=== PATIENT | male | born 1950 | race Caucasian/White ===

== ENCOUNTER → 2016-05-27 | Outpatient (CLI) | payer OTHER ==
[~2016-05-27] MED LIST: ATOR-54 PO; BUSP15TA70 PO; CLON1TAB3 PO; DORZ1SOL6 OP; DULO60CA44 PO; GABA-113 PO; HYDR50CA2 PO; LISI-786 PO; METF1000 PO; NXM/40 PO; SILO8CAP PO; SITA100T3 PO
== END | disposition home or self-care (01) ==
LOC: C.PATHSPEC 10:49
PROVIDERS: ATTEND Urology
DX: C67.9 Malignant neoplasm of bladder, unspecified (principal)

== ENCOUNTER → 2017-10-31 | Outpatient (CLI) | payer OTHER ==
[~2017-10-31] MED LIST changes: +CLB100 PO; +CLON1TAB10 PO; -CLON1TAB3 PO; +INSU100I23 SC; +OXCA150T2 PO; +PREG1CAP28 PO; +TRAZODONE 150 MG PO
--- NOTE | 2017-10-31 12:39 | DIAGNOSTIC IMAGING REPORT ---
LEG LENGTH STUDY CLINICAL HISTORY: Leg length discrepancy. Right sacroiliac pain. FINDINGS: A frontal standing radiograph of the lower extremities and pelvis is obtained for leg length assessment. The skeletal structures appear well mineralized for age. There is no evidence of fracture in the lower extremities or pelvis. Extensive lumbosacral spinal fusion hardware is in place. The right lower extremity measures 87.9 cm in length and the left lower extremity measures 88.0 cm in length as measured from the femoral head to the tibial plafond. The overlying soft tissues are normal in appearance. IMPRESSION: There is no significant leg length discrepancy. See above. Electronically signed by: Jc Pratt M.D. 10/31/2017 12:38 PM Dictated Date/Time: 10/31/2017 12:36 PM
== END | disposition home or self-care (01) ==
LOC: C.RADBC 11:00
PROVIDERS: ATTEND Anesthesiology
DX: M21.70 Unequal limb length (acquired), unspecified site (principal); M53.3 Sacrococcygeal disorders, not elsewhere classified

== ENCOUNTER 2019-02-14 06:32 | Inpatient (IN) ==
--- NOTE | 2019-01-30 10:53 | PAT Medication Instructions ---
Medication Instructions Date of Service January 30, 2019 Home Medications atorvastatin 20 mg tablet 10 mg PO PM celecoxib 100 mg capsule 100 mg PO BID PRN clonazepam 1 mg tablet 1 mg PO TID PRN esomeprazole magnesium 40 mg capsule,delayed release 40 mg PO QAM metformin 1,000 mg tablet 1,000 mg PO BID oxcarbazepine 150 mg tablet 2 tab PO BID silodosin 8 mg capsule 8 mg PO QAM sitagliptin 100 mg tablet 100 mg PO QAM Basaglar KwikPen U-100 Insulin 25 unit SUBCUT HS dorzolamide-timolol (PF) [Cosopt (PF)] 1 drp OPHTHALMIC (EYE) Q12H lisinopril 10 mg PO QAM quetiapine [Seroquel] 50 mg PO HS PRN tramadol 50 mg PO Q6H PRN trazodone 75 mg PO HS gabapentin 100 mg PO Q8H ASK your surgeon for instructions celecoxib 100 mg capsule 100 mg PO BID PRN DO NOT take the morning of surgery metformin 1,000 mg tablet 1,000 mg PO BID sitagliptin 100 mg tablet 100 mg PO QAM lisinopril 10 mg PO QAM Take morning of surgery With a small sip of water, OTHERWISE NOTHING TO EAT OR DRINK AFTER MIDNIGHT: clonazepam 1 mg tablet 1 mg PO TID PRN (if needed) esomeprazole magnesium 40 mg capsule,delayed release 40 mg PO QAM oxcarbazepine 150 mg tablet 2 tab PO BID silodosin 8 mg capsule 8 mg PO QAM dorzolamide-timolol (PF) [Cosopt (PF)] 1 drp OPHTHALMIC (EYE) Q12H tramadol 50 mg PO Q6H PRN (okay to take up to 4 hours prior to surgery if needed) gabapentin 100 mg PO Q8H Take evening before surgery atorvastatin 20 mg tablet 10 mg PO PM clonazepam 1 mg tablet 1 mg PO TID PRN (if needed) metformin 1,000 mg tablet 1,000 mg PO BID oxcarbazepine 150 mg tablet 2 tab PO BID Basaglar KwikPen U-100 Insulin 25 unit SUBCUT HS dorzolamide-timolol (PF) [Cosopt (PF)] 1 drp OPHTHALMIC (EYE) Q12H quetiapine [Seroquel] 50 mg PO HS PRN (if needed) tramadol 50 mg PO Q6H PRN (if needed) trazodone 75 mg PO HS gabapentin 100 mg PO Q8H Other Notes If you have any questions please call us at [phone] or [phone] or [phone] or [phone]
--- NOTE | 2019-01-31 09:24 | Anesthesiology Consultation ---
Date of Service January 31, 2019 Assessment & Plan (1) Encounter for pre-operative examination: - Check BSG AM DOS - TURBT: 01/30/18: LMA#5 at [facility] - Hx chlorhexidine reaction: localized redness with prior use/not given wipes at PAT visit due to prior reaction Chart Review Chart Review: Acceptable Risk for Surgery and Patient seen in Pre Admission Testing Teaching & Discussion Pre-Anesthesia Teaching/Discussion Notes: Instructed NPO after midnight before surgery,except medications with 15 cc of water. Medication instructions provided according to the [facility] guidelines. History Surgery Operation Date: 02/14/19 13:00 Proposed Procedures p Right Sacroiliac Joint Fusion, Spinal Cord Monitoring - Deuce Oconnor, DO *Right* side per patient (surgeon office made aware/will clarify) Height/Weight Height: 5 ft 9 in Weight: 88.2 kg Allergies Allergy/AdvReac Type Severity Reaction Status Date / Time chlorhexidine Allergy Mild localized Verified 01/31/19 09:56 redness Bactrim Allergy Unknown black Unverified 08/14/15 08:27 tongue sulfamethoxazole Allergy Unknown black Verified 01/25/19 09:51 tongue trimethoprim Allergy Unknown black Verified 01/25/19 09:51 tongue Medications Home Medications Medication Instructions Recorded Confirmed Last Taken atorvastatin 20 mg tablet 10 mg PO PM tab 01/09/18 01/25/19 01/29/18 22:00 celecoxib 100 mg capsule 100 mg PO BID PRN 01/09/18 01/25/19 01/29/18 09:00 clonazepam 1 mg tablet 1 mg PO BID PRN 01/09/18 01/31/19 01/29/18 22:00 esomeprazole magnesium 40 mg 40 mg PO QAM 01/09/18 01/25/19 01/29/18 22:00 capsule,delayed release metformin 1,000 mg tablet 1,000 mg PO BID 01/09/18 01/25/19 01/29/18 08:00 oxcarbazepine 150 mg tablet 2 tab PO BID tab 01/09/18 01/25/19 01/30/18 03:45 silodosin 8 mg capsule 8 mg PO QAM 01/09/18 01/25/19 Unknown sitagliptin 100 mg tablet 100 mg PO QAM 01/09/18 01/25/19 01/29/18 08:00 Jennifer Quintanilla U-100 Insulin 25 unit SUBCUT HS 01/23/18 01/25/19 01/28/18 dorzolamide-timolol (PF) [Cosopt 1 drp OPHTHALMIC (EYE) Q12H 01/23/18 01/25/19 01/28/18 (PF)] lisinopril 10 mg PO QAM 09/25/18 01/25/19 Unknown quetiapine [Seroquel] 50 mg PO HS PRN 09/25/18 01/25/19 Unknown tramadol 50 mg PO Q6H PRN 09/25/18 01/25/19 Unknown trazodone 75 mg PO HS 09/25/18 01/25/19 Unknown gabapentin 100 mg PO Q8H 01/25/19 01/25/19 Unknown Past Medical History Medical History BPH (benign prostatic hyperplasia) Chronic back pain Diabetes type 2, controlled IDDM GERD (gastroesophageal reflux disease) controlled Glaucoma History of colon cancer s/p colon resection History of rheumatic fever as a child Hx of bladder cancer s/p TURBT x 4 Hyperlipidemia Hypertension IBS (irritable bowel syndrome) Kidney stones Low back pain PTSD (post-traumatic stress disorder) Exercise / Class Metabolic Activity II 4-5 Yardwork/Stairs/Walk up hill (one flight of stairs (no chest pain/no sob)) Past Family History Family History Son Family history of diabetes mellitus Past Surgical History Surgical History History of arthroscopy left knee History of bowel resection History of colonoscopy History of cystoscopy History of esophagogastroduodenoscopy (EGD) History of eye surgery x4 History of laminectomy History of lithotripsy History of lumbar spinal fusion L3 through S1 by Dr. Gale x3 History of repair of rotator cuff bl History of sinus surgery History of surgery TURBT X 4 (TURBT: 01/30/18: LMA#5 at [facility]) Hx of nasal septoplasty Past Anesthesia History No Hx of Anesthesia Complications and No Family Hx of Anesthesia Complications History of PONV No Hx of PONV and No Hx of Motion Sickness Social History Smoking Status: Former smoker Smoking cigarettes per day: Quit smoking 40 years ago Do You Dip or Chew Tobacco: Yes (occasionally- advised NPO AM DOS) Smoking End Date: 50 years ago Hx Alcohol Use: No Hx Substance Use: No substance use type: does not use Review of Systems Patient denies chest pain, shortness of breath, dyspnea on exertion, cough, wheezing, palpitations. Physical Exam Vital Signs VITALS BP 106/69 P 79 TEMP 98.1 SP02 96%RA RESP 16 PHYSICAL Full neck and c-spine range of motion. Full TMJ range of motion. TMD 3 finger breaths Mallampati Score 2 Dentition: intact, crowns on molars Lungs: clear throughout to auscultation Cardiac: regular rate and rhythm, no murmurs noted Spine: normal Carotid arteries: negative bruit Extremities: no edema Testing Laboratory Results 01/31/19 09:54 01/31/19 09:54 PT 10.9 Seconds (9.0-12.0) 01/31/19 09:54 INR 1.1 (0.9-1.1) 01/31/19 09:54 APTT 26.0 Seconds (21.0-31.0) 01/31/19 09:54 Urine Color Yellow 01/31/19 Unknown Urine Appearance Clear (Clear) 01/31/19 Unknown Urine pH 5.5 (4.5-7.5) 01/31/19 Unknown Ur Specific [place] 1.018 (1.000-1.030) 01/31/19 Unknown Urine Protein Negative (Negative) 01/31/19 Unknown Urine Glucose (UA) Negative (Negative) 01/31/19 Unknown Urine Ketones Negative (Negative) 01/31/19 Unknown Urine Nitrite Negative (Negative) 01/31/19 Unknown Ur Leukocyte Esterase Negative (Negative) 01/31/19 Unknown Blood Type O Positive 01/31/19 09:54 Antibody Screen NEGATIVE 01/31/19 09:54 01/09/19 HGBA1C 6.1% Electrocardiogram Date: 09/01/18 Findings: + NSR @ (100) Chest X-Ray Date: 01/31/19 Findings: + NAD Echocardiogram Date: 09/25/18 EF 55%. Mild TR. Stress Test Date: 09/25/18 Type: nuclear Normal nuclear part of exercise nuclear spect, no evidence of ischemia at achieved workload. No evidence of WA. LVEF 75%.
--- NOTE | 2019-01-31 10:26 | XRay Report ---
TWO VIEW CHEST CLINICAL HISTORY: Preoperative examination. FINDINGS: PA and lateral chest radiographs are compared to study dated 01/25/2018. The cardiomediasti nal silhouette is unremarkable. The lungs and pleural spaces are clear. There is no pneumothorax. Th e bony thorax appears intact. Degenerative change is noted in the thoracic spine. IMPRESSION: No active disease in the chest. Electronically signed by: Jc Pratt M.D. 01/31/2019 10:24 AM
[2019-01-31 11:15] LABS: Basophils # (auto) 0.04 K/uL (0-0.2); Basophils % (auto) 0.5 %; Eosinophils # (auto) 0.23 K/uL (0-0.5); Eosinophils % (auto) 2.9 %; Hematocrit (blood only) 43.1 % (42-52); Hemoglobin 14.7 g/dL (14.0-18.0); Immature Granulocytes # (auto) 0.02 K/uL (0.00-0.02); Immature Granulocytes % (auto) 0.3 %; Lymphocytes # (auto) 2.05 K/uL (1.2-3.4); Lymphocytes % (auto) 25.8 %; Mean Corpuscular Hemoglobin 30.5 pg (25-34); Mean Corpuscular Hgb Conc 34.1 g/dL (32-36); Mean Corpuscular Volume 89.4 fL (80-100); Mean Platelet Volume 9.9 fL (7.4-10.4); Monocytes # (auto) 0.69 K/uL (0.11-0.59); Monocytes % (auto) 8.7 %; Neutrophils # (auto) 4.92 K/uL (1.4-6.5); Neutrophils % (auto) 61.8 %; Platelet Count 234 K/uL (130-400); RDW Standard Deviation 42.4 fL (36.4-46.3); Red Blood Count 4.82 M/uL (4.7-6.1); White Blood Count 7.95 K/uL (4.8-10.8)
[2019-01-31 11:19] LABS: BUN Creatinine Ratio 14.6 (10-20); Calcium 9.5 mg/dl (8.5-10.1); Creatinine Clr Calc Pharmacy 69.1 ml/min; Est GFR (African American) 76.7; Est GFR (Non-African American) 66.2; Potassium 4.5 mmol/L (3.5-5.1)
[2019-01-31 11:22] LABS: Appearance Urine Clear (Clear); Bilirubin Urine Negative (Negative); Blood Urine Negative (Negative); Color Urine Yellow; Glucose Urine UA Negative (Negative); Ketones Urine Negative (Negative); Leukocyte Esterase Urine Negative (Negative); Nitrite Urine Negative (Negative); Protein Urine Negative (Negative); Specific Gravity Urine 1.018 (1.000-1.030); Urobilinogen Urine Negative (Negative); pH Urine 5.5 (4.5-7.5)
[2019-01-31 11:28] LABS: INR 1.1 (0.9-1.1); Prothrombin Time 10.9 Seconds (9.0-12.0)
[~2019-02-14 06:32] MED LIST changes: +ACETAMINOPHEN 500 MG TAB PO SCH; -ATOR-54 PO; -BUSP15TA70 PO; +CEFAZOLIN 2000MG 2,000 MG/15 ML SYR IV SCH; -CLB100 PO; -CLON1TAB10 PO; +CeleBREX 200 MG CAP PO SCH; -DORZ1SOL6 OP; -DULO60CA44 PO; -GABA-113 PO; +GABAPENTIN 300 MG CAP PO SCH; -HYDR50CA2 PO; -INSU100I23 SC; -LISI-786 PO; +LR 15ML/HR IV SCH; -METF1000 PO; -NXM/40 PO; -OXCA150T2 PO; -PREG1CAP28 PO; -SILO8CAP PO; -SITA100T3 PO; -TRAZODONE 150 MG PO
[2019-02-14] MEDS ORDERED: MIDAZOLAM HCL 1 MG/ML 2ML VIAL ONE (06:46)
[2019-02-14] MEDS ORDERED: HYDROmorphone INJ 2 MG/ML SYR/VIAL ONE ×2 (06:46→08:32)
[2019-02-14] MEDS ORDERED: fentaNYL citrate 100 MCG/2 ML VIAL ONE ×5 (06:46→09:12)
[2019-02-14] MEDS ORDERED: PROPOFOL IV EMULSION 10 MG/ML 20 ML VIAL IV ONE (06:47)
[2019-02-14] MEDS ORDERED: NEOSTIGMINE METHYLSULFATE 1 MG/ML 10ML VIAL ONE (06:47)
[2019-02-14] MEDS ORDERED: DEXAMETHASONE SOD INJ 4 MG/ML VIAL ONE (06:47)
[2019-02-14] MEDS ORDERED: ONDANSETRON INJ 2 MG/ML 2 ML VIAL ONE (06:47)
[2019-02-14] MEDS ORDERED: LIDOCAINE HCL 2% 2 ML VIAL/AMP(20MG/ML) INFIL ONE (06:47)
[2019-02-14] MEDS ORDERED: GLYCOPYRROLATE 0.2 MG/ML VIAL ONE (06:47)
[2019-02-14] MEDS ORDERED: ROCURONIUM BROMIDE 10 MG/ML 5 ML VIAL ONE (06:47)
[2019-02-14] MEDS ORDERED: BUPIVACAINE 0.25% 30 ML VIAL ONE (07:17)
[2019-02-14] MEDS ORDERED: EPINEPHrine INJ 1 MG/ML AMP ONE (07:17)
[2019-02-14] MEDS ORDERED: BACITRACIN INJ 50,000 UNIT VIAL ONE (07:17)
--- NOTE | 2019-02-14 07:29 | History & Physical Bridge Note ---
Date of Service February 14, 2019 History & Physical Bridge Note I have examined the patient, reviewed the History & Physical and in the interval since the performance of the History & Physical I have noted the following changes of clinical significance: no changes noted
--- NOTE | 2019-02-14 07:31 | History & Physical Report ---
Date of Service February 14, 2019 Assessment & Plan (1) Sacroiliitis: Right sacroiliac fusion Present on Admission?: Yes History of Present Illness Chief Complaint: Sacroiliitis Primary Care Provider: Libertad Novak MD This is a 68-year-old male that presents with chronic persistent right sacroiliitis. After failing extensive course of nonoperative care is here for surgical intervention. Allergies Allergy/AdvReac Type Severity Reaction Status Date / Time chlorhexidine Allergy Mild localized Verified 02/14/19 06:50 redness Bactrim Allergy Unknown black Unverified 08/14/15 08:27 tongue sulfamethoxazole Allergy Unknown black Verified 02/14/19 06:50 tongue trimethoprim Allergy Unknown black Verified 02/14/19 06:50 tongue Home Medications Home Medications Medication Instructions Recorded Confirmed Type atorvastatin 20 mg tablet 10 mg PO PM tab 01/09/18 02/14/19 History celecoxib 100 mg capsule 100 mg PO BID PRN 01/09/18 02/14/19 History clonazepam 1 mg tablet 1 mg PO BID PRN 01/09/18 02/14/19 History esomeprazole magnesium 40 mg 40 mg PO QAM 01/09/18 02/14/19 History capsule,delayed release metformin 1,000 mg tablet 1,000 mg PO BID 01/09/18 02/14/19 History oxcarbazepine 150 mg tablet 2 tab PO BID tab 01/09/18 02/14/19 History silodosin 8 mg capsule 8 mg PO QAM 01/09/18 02/14/19 History sitagliptin 100 mg tablet 100 mg PO QAM 01/09/18 02/14/19 History Basaglar EveikPen U-100 Insulin 25 unit SUBCUT HS 01/23/18 02/14/19 History dorzolamide-timolol (PF) [Cosopt 1 drp OPHTHALMIC (EYE) Q12H 01/23/18 02/14/19 History (PF)] lisinopril 10 mg PO QAM 09/25/18 02/14/19 History tramadol 50 mg PO Q6H PRN 09/25/18 02/14/19 History trazodone 75 mg PO HS 09/25/18 02/14/19 History gabapentin 100 mg PO Q8H 01/25/19 02/14/19 History Past Med/Surg History Medical History BPH (benign prostatic hyperplasia) Chronic back pain Diabetes type 2, controlled IDDM GERD (gastroesophageal reflux disease) controlled Glaucoma History of colon cancer s/p colon resection History of rheumatic fever as a child Hx of bladder cancer s/p TURBT x 4 Hyperlipidemia Hypertension IBS (irritable bowel syndrome) Kidney stones Low back pain PTSD (post-traumatic stress disorder) Surgical History History of arthroscopy left knee History of bowel resection History of colonoscopy History of cystoscopy History of esophagogastroduodenoscopy (EGD) History of eye surgery x4 History of laminectomy History of lithotripsy History of lumbar spinal fusion L3 through S1 by Dr. Gale x3 History of repair of rotator cuff bl History of sinus surgery History of surgery TURBT X 4 (TURBT: 01/30/18: LMA#5 at [facility]) Hx of nasal septoplasty Family History Son Family history of diabetes mellitus Social History Preferred Language: Khmer Communication Ability: Effective Visual Impairment: No Limitations Launch Steward Required: No Beliefs That Will Affect Care: None Current Living Situation: Spouse Other Information That Helps Us Care for You: No Feels Safe at Home: Yes Safety Concerns: Feels Safe At This Time Smoking Status: Former smoker Tobacco Type: smokeless tobacco ; Cigarettes Per Day: Quit smoking 40 years ago ; Do You Dip or Chew Tobacco: Yes (occasionally- advised NPO AM DOS) ; Smoking End Date: 50 years ago ; Second Hand Exposure: No ; Tobacco Cessation Education Requested by Patient: No Hx Alcohol Use: No Hx Substance Use: No Physical Exam Physical Exam: Patient is alert and oriented neurologically intact. Results & Data Vital Signs (Past 12 Hours) Vital Signs Temp Pulse Resp BP Pulse Ox 02/14/19 06:54 36.6 C 80 20 117/66 95
[2019-02-14] MEDS ORDERED: FLOSEAL HEMOSTATIC MATRIX 10ML TOP ONE (07:33)
[2019-02-14] MEDS ORDERED: PHENYLEPHRINE 100MCG/ML 5ML SYR ONE (08:23)
[2019-02-14] MEDS ORDERED: ePHEDrine sulfate 50 MG/ML SYR ONE (08:23)
--- NOTE | 2019-02-14 09:00 | Operative Report ---
Post Operative Report Pre & Post Diagnosis Operation Date: 02/14/19 07:45 Pre-Op Diagnosis: SI Joint Dysfunction Post-Op Diagnosis: SI Joint Dysfunction I identified the patient and participated in the time-out.: Yes Procedure Operation Date: 02/14/19 07:45 Actual Procedures #1 open right SI joint fusion. #2 placement of 25 mm allograft filled with i nfuse collagen sponge and a right SI joint. #3 placement of 3 percutaneous SI screws all 3 PANDEY-coated 50 mm, 40 mm, and 30 mm in length. Surgeon Deuce Oconnor, Restaurant Kitchen Manager Gilma Lomas Estimated Blood Loss 20 Findings Consistent with Post-Op Diagnosis Specimens None Indications This is a 68-year-old male who presents with chronic persistent right SI joint dysfunction and pain. After failing extensive course of nonoperative care is here for surgical intervention. Description of Procedure Patient was met with identified and informed consent obtained. Patient was then taken to the operative suite underwent intubation placed in the prone position the check stable chest padded bolsters. All bony prominences well-padded eyes inspected to ensure no external pressure placed upon. This point the right upper buttock was prepped and draped in normal sterile fashion. With the assistance of fluoroscopy identified the right SI joint created approximately 3 cm incision overlying this region. Directly opening the SI joint. Was able to visualize and palpate the joint. Guidewire was placed directly in the joint. I verified my position in AP and lateral planes. I then placed the joint finder over the guidewire placed into the joint and the appropriate direction. The cannula was placed over the joint finder and tapped in the joint. I then by way of curettage and drilling decorticated the SI joint bleeding surface and placed a 25 mm allograft filled with infuse collagen sponge directly into the SI joint. It was tapped in position verified with fluoroscopy. Then placed a second incision along the right upper buttock in line with the posterior sacral slope. A guidewire was then placed and taken across the SI joint and the more proximal region. I verified my position AP lateral inlet and outlet views. I then dilated over the guidewire and drilled across the SI joint with a 10 mm drill. I did place a 50 mm PANDEY-coated slotted screw filled with infuse collagen sponge and autograft. This demonstrated excellent bite. Using the outrigger guide I placed a second guidewire distal to the proximal screw and a second screw was placed in a similar fashion and the skin screw was 40 mm in length PANDEY-coated slotted filled with infuse collagen sponge and local autograft. Lastly a third distal screw was placed in similar fashion the screw was 30 mm in length PANDEY- coated slotted screw again filled with infuse and autograft. All 3 screws demonstrated excellent fit and bite. Incision was then copiously irrigated closed with subcutaneous Vicryl and 4 Monocryl for final skin closure. Patient was then awakened taken to PACU stable condition. Please note Gilma Lomas present at the entire procedure involved in patient positioning complex portions of the surgery and final skin closure. I attest to the content of the Intraoperative Record and any orders documented therein. Any exceptions are noted below.
[2019-02-14] MEDS ORDERED: HYDROmorphone INJ 1 MG/ML SYRINGE IV PRN (09:02)
[2019-02-14] MEDS ORDERED: LORazepam 1 MG TAB PO PRN (09:02)
[2019-02-14] MEDS ORDERED: DO NOT ADMINISTER PNEUMOCOCCAL VACCINE PRN (09:02)
[2019-02-14] MEDS ORDERED: DO NOT ADMINISTER FLU VACCINE PRN (09:02)
[2019-02-14] MEDS ORDERED: MAGNESIUM HYDROXIDE SUSP 30 ML UDC PO PRN (09:02)
[2019-02-14] MEDS ORDERED: ACETAMINOPHEN 325 MG TAB PO PRN (09:02)
[2019-02-14] MEDS ORDERED: ACETAMINOPHEN 500 MG TAB PO PRN (09:02)
[2019-02-14] MEDS ORDERED: LORazepam 1 MG/2 ML VIAL IV PRN (09:02)
--- NOTE | 2019-02-14 09:04 | Fluoroscopy Report ---
FL pelvis 1-2V CLINICAL HISTORY: RIGHT SI JOINT FUSION COMPARISON STUDY: None FLUOROSCOPY TIME: 1 minute 23 seconds NUMBER OF FLUOROSCOPIC IMAGES: 3 FINDINGS: Findings consistent with screw fixation of the right sacroiliac joint. Postoperative change s are noted in the low lumbar region. IMPRESSION: Image intensifier utilized for screw fixation of the right sacroiliac joint. The above report was generated using voice recognition software. It may contain grammatical, syntax or spelling errors. Electronically signed by: Denton Saldaña M.D. 02/14/2019 9:03 AM
[2019-02-14] MEDS ORDERED: ESMOLOL HCL INJ 10 MG/ML 10ML VIAL IV ONE (09:11)
[2019-02-14] MEDS ORDERED: CEFAZOLIN 2000MG 2,000 MG/15 ML SYR IV SCH (09:15)
[2019-02-14] MEDS ORDERED: PROMETHAZINE HCL 12.5 MG in SODIUM CHLORIDE 0.9% 50 ML IV PRN (09:22)
[2019-02-14] MEDS ORDERED: ePHEDrine sulfate 50 MG/ML AMP IV PRN (09:22)
[2019-02-14] MEDS ORDERED: ATROPINE SULFATE 0.1 MG/ML 10ML SYR IV PRN (09:22)
[2019-02-14] MEDS ORDERED: HYDROmorphone INJ 2 MG/ML SYR/VIAL IV PRN (09:22)
[2019-02-14] MEDS ORDERED: METOCLOPRAMIDE HCL INJ 5 MG/ML 2 ML VIAL IV PRN (09:22)
[2019-02-14] MEDS: fentaNYL citrate 100 MCG/2 ML VIAL IV PRN ×2 (09:28→09:33)
[2019-02-14] MEDS ORDERED: HYDROmorphone INJ 1 MG/ML SYRINGE ONE (09:37)
--- NOTE | 2019-02-14 10:01 | Anesthesiology Progress Note ---
Date of Service February 14, 2019 Anesthesia Post Procedure Vital Signs Vital Signs: Temp Pulse Pulse Resp BP Pulse Ox 02/14/19 09:55 36.5 C 59 L 17 114/55 L 97 02/14/19 09:45 74 17 124/72 99 02/14/19 09:35 63 19 107/58 L 98 02/14/19 09:25 77 19 140/73 100 02/14/19 09:15 83 15 147/82 H 100 02/14/19 09:07 36.9 C 75 12 128/78 98 02/14/19 06:54 36.6 C 80 20 117/66 95 Pain Intensity Lower Back: Pain Intensity: 5 Transfer of Care Handoff Completed per policy Notes Mental Status: alert / awake / arousable and participated in evaluation Patient Amnestic to Procedure: Yes Nausea / Vomiting: adequately controlled Pain: adequately controlled Airway Patency, RR, SpO2: stable & adequate BP & HR: stable & adequate Hydration State: stable & adequate Anesthetic Complications: no major complications apparent
[2019-02-14] MEDS ORDERED: TRAMADOL HCL 50 MG TABLET PO PRN (10:48)
[2019-02-14] MEDS ORDERED: CELECOXIB 100 MG CAP PO PRN (10:48)
[2019-02-14] MEDS ORDERED: clonazePAM 1 MG TAB PO PRN (10:48)
[2019-02-14] MEDS ORDERED: CARBOHYDRATES FOR HYPOGLYCEMIA PO PRN (11:24)
[2019-02-14] MEDS ORDERED: GLUCOSE 10 TABS/TUBE PO PRN (11:24)
[2019-02-14] MEDS ORDERED: DEXTROSE 50% 50 ML SYRINGE IV PRN (11:24)
[2019-02-14] MEDS ORDERED: GLUCAGON FOR INJ 1 MG VIAL SQ PRN (11:24)
[2019-02-14] MEDS ORDERED: GLUCOSE 40% GEL 15 GM TUBE PO PRN (11:24)
[2019-02-14] MEDS ORDERED: INSULIN ASPART 100 UNITS/ML 3 ML PEN SC SCH (11:30)
--- NOTE | 2019-02-14 11:31 | Hospitalist Consultation ---
Date of Consultation February 14, 2019 Assessment & Plan (1) H/O Spinal surgery: This is a 68yo M with a PMH of DM II, HTN, HLD, PTSD, history of bladder cancer and other medical problems listed below who presents with POD#0 s/p R SI joint fusion by Dr. Oconnor. -POD#0 s/p R SI joint fusion by Dr. 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 Putnam with plans for surgical resection (4) Diabetes type 2, controlled: -Hold home agents -Basal/bolus while in-patient with lantus sliding scale (has not been using full prescribed Basaglar dose lately) -BSG AC HS (5) Hyperlipidemia: Continue statin (6) PTSD (post-traumatic stress disorder): Continue oxcarbazepine, clonazepam PRN PCP: Dr. Novak ([facility]) Dispo: Per primary service Patient seen in collaboration with Dr. Salguero. Please see addendum. Supervising Physician Co-Signing Physician Notes I have seen and examined the patient and have discussed the case with the provider above. I agree with the assessment and plan as stated with the following exceptions. 68 yo M s/p R SI joint fusion this morning. Some post-op pain is present. He is oriented and speaking without issues. Vitals are stable. Denies chest pain, shortness of breath, nausea, tingling or numbness in feet. Physical exam reveals clear lungs to auscultation, a normal heart exam- S1/2 heard, no edema, no JVD, no m/g/r, soft, NTND abdomen. Lower back exam reveals a small blood-soaked gauze with tegaderm in place. He reports some sadness regarding his son's from diabetes complications one year ago, appearing to be appropriate bereavement. He reports he recently had an A1C checked at [facility] and this was 6.1. He reports taking a smaller amount of Basaglar at night recently (10 Units vs 25 Units) based on his PCP recommendations. Cont basal/bolus insulin about and adjust to avoid lows. Agree with carb coverage at this time. Thank you for this consultation. Liza Salguero DO [facility] of Present Illness Reason for Consultation: Postop medical management Attending Physician: Deuce Oconnor DO History of Present Illness This is a 68yo M with a PMH of DM II, HTN, HLD, PTSD, history of bladder cancer and other medical problems listed below who presents with POD#0 s/p R SI joint fusion. Patient is feeling well postoperatively. Endorses minimal surgical site pain. Denies any numbness or paresthesias in bilateral lower extremities. Denies fever, chills, lightheadedness, visual changes, chest pain, palpitations, shortness of breath, nausea, vomiting, abdominal pain or dysuria. Has Obrien catheter in draining light yellow urine. Last BM was yesterday morning. PCP is Dr. Novak of [facility]. Has history of diabetes but does not know his most recent hemoglobin A1c. Has not been taking as much Basaglar at night due to low blood sugar readings around 90-100. Also recently reduce his gabapentin frequency from 3 times a day to twice a day. Follows with Dr. Putnam for recently diagnosed bladder cancer with plans for surgical resection. Allergies Allergy/AdvReac Type Severity Reaction Status Date / Time chlorhexidine Allergy Mild localized Verified 02/14/19 06:50 redness Bactrim Allergy Unknown black Unverified 08/14/15 08:27 tongue sulfamethoxazole Allergy Unknown black Verified 02/14/19 06:50 tongue trimethoprim Allergy Unknown black Verified 02/14/19 06:50 tongue Home Medications Home Medications Medication Instructions Recorded Confirmed Type atorvastatin 20 mg tablet 10 mg PO PM tab 01/09/18 02/14/19 History celecoxib 100 mg capsule 100 mg PO BID PRN 01/09/18 02/14/19 History clonazepam 1 mg tablet 1 mg PO BID PRN 01/09/18 02/14/19 History esomeprazole magnesium 40 mg 40 mg PO QAM 01/09/18 02/14/19 History capsule,delayed release metformin 1,000 mg tablet 1,000 mg PO BID 01/09/18 02/14/19 History oxcarbazepine 150 mg tablet 2 tab PO BID tab 01/09/18 02/14/19 History silodosin 8 mg capsule 8 mg PO QAM 01/09/18 02/14/19 History sitagliptin 100 mg tablet 100 mg PO QAM 01/09/18 02/14/19 History Jennifer Quintanilla U-100 Insulin 25 unit SUBCUT HS 01/23/18 02/14/19 History dorzolamide-timolol (PF) [Cosopt 1 drp OPHTHALMIC (EYE) Q12H 01/23/18 02/14/19 History (PF)] lisinopril 10 mg PO QAM 09/25/18 02/14/19 History tramadol 50 mg PO Q6H PRN 09/25/18 02/14/19 History trazodone 75 mg PO HS 09/25/18 02/14/19 History gabapentin 100 mg PO BID 01/25/19 02/14/19 History Patient History Medical History BPH (benign prostatic hyperplasia) Chronic back pain Diabetes type 2, controlled (Chronic) IDDM GERD (gastroesophageal reflux disease) controlled Glaucoma (Chronic) History of colon cancer s/p colon resection History of rheumatic fever as a child Hx of bladder cancer s/p TURBT x 4 Hyperlipidemia (Chronic) Hypertension (Chronic) IBS (irritable bowel syndrome) Kidney stones PTSD (post-traumatic stress disorder) PTSD (post-traumatic stress disorder) Surgical History (Updated 02/14/19 @ 12:37 by Shannon Zendejas PA-C) History of arthroscopy left knee History of bowel resection History of cystoscopy History of esophagogastroduodenoscopy (EGD) History of eye surgery x4 History of laminectomy History of lithotripsy History of lumbar spinal fusion L3 through S1 by Dr. Gale x3 History of repair of rotator cuff bl History of sinus surgery History of surgery TURBT X 4 (TURBT: 01/30/18: LMA#5 at [facility]) Hx of nasal septoplasty Family History Son Family history of diabetes mellitus Social History Preferred Language: Burmese Communication Ability: Effective Visual Impairment: No Limitations Naphthalene Still Operator Required: No Beliefs That Will Affect Care: None Current Living Situation: Spouse Other Information That Helps Us Care for You: No Feels Safe at Home: Yes Safety Concerns: Feels Safe At This Time Smoking Status: Former smoker Tobacco Type: smokeless tobacco ; Cigarettes Per Day: Quit smoking 40 years ago ; Do You Dip or Chew Tobacco: Yes (occasionally- advised NPO AM DOS) ; Smoking End Date: 50 years ago ; Second Hand Exposure: No ; Tobacco Cessation Education Requested by Patient: No Hx Alcohol Use: No Hx Substance Use: No Review of Systems Review of Systems: At least ten systems reviewed and negative except as noted in the HPI. Physical Exam Physical Exam: General Appearance: WD/WN, vitals as above, NAD, lying in bed, pleasant, conversing easily Head: normocephalic, atraumatic Eyes: normal inspection, PERRL, conjunctivae normal, anicteric sclerae ENT: external ear and nose normal, oropharynx normal Neck: trachea midline, no thyromegaly normal visual inspection Respiratory: normal respiratory effort, lungs clear to auscultation, no wheeze, rales, rhonchi. Normal insp/exp effort, no accessory muscle use Cardiovascular: regular rate, rhythm, no murmur, normal peripheral pulses. Vessels: no JVD or carotid bruit Chest: normal inspection of chest Abdomen/GI: normal bowel sounds, soft, nontender, no hepatosplenomegaly Extremities/Musculoskelatal: +sacral surgical dressing with quarter-sized amount of bloody drainage on bandage. No cyanosis or clubbing, extremities motor strength 5/5 Neurologic: PERRL, EOMI, CN's II-XI intact bilaterally and moves all extremities Psychiatric: A+Ox3, euthymic affect Skin: no rashes, normal color, warm/dry Results & Data Vital Signs (Past 12 Hours) Vital Signs Temp Pulse Pulse Resp BP Pulse Ox 02/14/19 11:08 36.8 C 76 18 110/74 94 02/14/19 10:49 36.8 C 71 97 H 117/74 97 02/14/19 10:15 59 L 15 110/55 L 93 02/14/19 09:55 36.5 C 59 L 17 114/55 L 97 02/14/19 09:45 74 17 124/72 99 02/14/19 09:35 63 19 107/58 L 98 02/14/19 09:25 77 19 140/73 100 02/14/19 09:15 83 15 147/82 H 100 02/14/19 09:07 36.9 C 75 12 128/78 98 02/14/19 06:54 36.6 C 80 20 117/66 95
[2019-02-14] MEDS: SODIUM CHLORIDE 0.9% 1000ML 1,000 ML IV SCH ×2 (12:17→23:27)
[2019-02-14] MEDS: OXYCODONE HCL IR 5 MG TAB (IMMEDIATE RELEASE) PO PRN ×3 (12:17→22:23)
[2019-02-14] MEDS ORDERED: GABAPENTIN 100 MG CAP PO SCH (14:00)
[2019-02-14] MEDS ORDERED: LARYING-O-JET KIT (LTA) ONE (15:02)
[2019-02-14] MEDS: CEFAZOLIN 2000MG 2,000 MG/15 ML SYR IV SCH ×2 (16:41→23:27)
[2019-02-14] MEDS: INSULIN ASPART 100 UNITS/ML 3 ML PEN SC SCH ×2 (17:54→20:44)
[2019-02-14] MEDS: DOCUSATE SODIUM 100 MG CAP PO SCH (20:42)
[2019-02-14] MEDS: GABAPENTIN 100 MG CAP PO SCH (20:43)
[2019-02-14] MEDS: OXcarbazepine 150 MG TABLET PO SCH (20:43)
[2019-02-14] MEDS: INSULIN GLARGINE SOLOSTAR 100 UNITS/ML 3 ML PEN SC SCH (20:45)
[2019-02-14] MEDS ORDERED: INSULIN GLARGINE SOLOSTAR 100 UNITS/ML 3 ML PEN SQ SCH (21:00)
[2019-02-14] MEDS ORDERED: TRAZODONE HCL 50 MG TAB PO SCH (21:00)
[2019-02-14] MEDS ORDERED: ATORVASTATIN 10 MG TAB PO SCH (21:00)
[2019-02-14] MEDS ORDERED: INSULIN GLARGINE SOLOSTAR 100 UNITS/ML 3 ML PEN SC SCH (21:00)
[2019-02-15] MEDS: OXYCODONE HCL IR 5 MG TAB (IMMEDIATE RELEASE) PO PRN ×3 (03:06→12:46)
[2019-02-15 06:30] LABS: Hematocrit (blood only) 36.5 % (42-52); Hemoglobin 12.6 g/dL (14.0-18.0); Mean Corpuscular Hemoglobin 30.7 pg (25-34); Mean Corpuscular Hgb Conc 34.5 g/dL (32-36); Mean Corpuscular Volume 88.8 fL (80-100); Mean Platelet Volume 9.3 fL (7.4-10.4); Platelet Count 207 K/uL (130-400); RDW Coefficient of Variation 12.9 % (11.5-14.5); RDW Standard Deviation 41.9 fL (36.4-46.3); Red Blood Count 4.11 M/uL (4.7-6.1); White Blood Count 13.33 K/uL (4.8-10.8)
[2019-02-15 06:57] LABS: BUN Creatinine Ratio 17.1 (10-20); Calcium 8.5 mg/dl (8.5-10.1); Creatinine Clr Calc Pharmacy 74.7 ml/min; Est GFR (African American) 84.7; Est GFR (Non-African American) 73.1; Potassium 3.8 mmol/L (3.5-5.1)
--- NOTE | 2019-02-15 08:34 | Discharge Summary ---
Date of Service February 15, 2019 Admission HPI Per Admitting Provider This is a 68-year-old male that presents with chronic persistent right sacroiliitis. After failing extensive course of nonoperative care is here for surgical intervention. Principal Diagnosis Right sacroiliitis Discharge Data Allergies Allergy/AdvReac Type Severity Reaction Status Date / Time chlorhexidine Allergy Mild localized Verified 02/14/19 06:50 redness Bactrim Allergy Unknown black Unverified 08/14/15 08:27 tongue sulfamethoxazole Allergy Unknown black Verified 02/14/19 06:50 tongue trimethoprim Allergy Unknown black Verified 02/14/19 06:50 tongue Consultations 02/14/19 10:48 Consult Hospitalist Routine Procedures Performed Operation Date: 02/14/19 07:45 Actual Procedures p Right Sacroiliac Joint Fusion(Right) - Deuce Oconnor DO Ordered Studies 02/14/19 07:45 FL fluoroscopy <1hr Routine FL pelvis 1-2V Routine Hospital Course (1) Sacroiliitis: Patient underwent right SI joint fusion tolerated well was taken to orthopedic floor postoperative. Postop day 1 is working with physical therapy and pain well controlled. Subsequently discharged home. Neurologically intact. Discharge orders instructions from chart for further review. Total Time Total Time Spent Total Time Spent (In Minutes): 20 minutes Discharge Plan Discharge Items Patient Disposition: Home - Self-Care Reason For Visit: SI Joint Dysfunction Discharge Diagnosis: Sacroiliitis Activity: Per Instructions section Lifting: No more than 5 pounds Bathing: May shower/bathe in 3 days Driving/Machine Use: Resume 3 days after discharge Weightbearing: Right toe touch Non-emergency contact: Primary Care Provider Call non-emergency contact if: you have any medication questions Follow-up/Referrals: Libertad Novak MD [Primary Care Provider] - Diet: Regular Addtl Attending Provider Instructions: Patient is to use a walker and not exceed toe-touch weightbearing to the right lower extremity. He will follow-up in 2 weeks for an x-ray. Pending Studies at Discharge: No Stand-Alone Forms: My [email or web address], Smoking Cessation Medications and DC Order Prescriptions: New oxycodone 5 mg tablet 5 mg PO Q6H PRN (Reason: pain, severe) Qty: 20 RF: 0 Continued oxcarbazepine [Trileptal] 150 mg tablet 2 tab PO BID RF: 0 atorvastatin [Lipitor] 20 mg tablet 10 mg PO PM RF: 0 clonazepam [Klonopin] 1 mg tablet 1 mg PO BID PRN (Reason: Anxiety) RF: 0 metformin 1,000 mg tablet 1,000 mg PO BID RF: 0 esomeprazole magnesium [Nexium] 40 mg capsule,delayed release(DR/EC) 40 mg PO QAM RF: 0 celecoxib [Celebrex] 100 mg capsule 100 mg PO BID PRN (Reason: Pain) RF: 0 sitagliptin [Januvia] 100 mg tablet 100 mg PO QAM RF: 0 silodosin [Rapaflo] 8 mg capsule 8 mg PO QAM RF: 0 Basaglar KwikPen U-100 Insulin 100 unit/mL (3 mL) Insulin Pen 25 unit SUBCUT HS RF: 0 dorzolamide-timolol (PF) [Cosopt (PF)] 2-0.5 % Dropperette 1 drp OPHTHALMIC (EYE) Q12H RF: 0 lisinopril 10 mg Tablet 10 mg PO QAM RF: 0 trazodone 150 mg Tablet 75 mg PO HS RF: 0 gabapentin 100 mg Capsule 100 mg PO BID RF: 0 Discontinued tramadol 50 mg Tablet 50 mg PO Q6H PRN (Reason: Pain) RF: 0 Discharge Orders: Discharge Order (Routine); Ordered 02/15/19 Ordered By: Deuce Oconnor Admission Data Admit Date/Time: 02/14/19 09:02 Attending Provider: Deuce Oconnor Admit Provider: Deuce Oconnor Primary Care Provider: Libertad Novak Other Providers: Olu Mcallister
[2019-02-15] MEDS: INSULIN ASPART 100 UNITS/ML 3 ML PEN SC SCH ×2 (08:39→12:15)
[2019-02-15] MEDS: INSULIN GLARGINE SOLOSTAR 100 UNITS/ML 3 ML PEN SC SCH (08:40)
[2019-02-15] MEDS: OXcarbazepine 150 MG TABLET PO SCH (08:41)
[2019-02-15] MEDS: GABAPENTIN 100 MG CAP PO SCH (08:41)
[2019-02-15] MEDS: DOCUSATE SODIUM 100 MG CAP PO SCH (08:42)
[2019-02-15] MEDS: CEFAZOLIN 2000MG 2,000 MG/15 ML SYR IV SCH (08:42)
[2019-02-15] MEDS ORDERED: PANTOprazole 40 MG TAB PO SCH (09:00)
[2019-02-15] MEDS ORDERED: lisinopriL 10 MG TAB PO SCH (09:00)
[2019-02-15] MEDS ORDERED: SITAGLIPTIN PHOSPHATE 100 MG TAB PO SCH (09:00)
--- NOTE | 2019-02-15 14:41 | Anesthesiology Progress Note ---
Date of Service February 15, 2019 Anesthesia Post Procedure Vital Signs Vital Signs: Temp Pulse Pulse Pulse Resp BP Pulse Ox 02/15/19 13:16 95 02/15/19 12:16 36.5 C 59 L 91 H 71 16 122/72 95 02/15/19 07:54 36.5 C 71 16 122/72 95 02/15/19 02:51 36.4 C L 71 15 106/65 95 02/14/19 23:10 36.6 C 85 16 114/67 93 02/14/19 19:35 36.8 C 91 H 16 141/84 H 95 02/14/19 14:59 36.8 C 88 17 127/74 93 Pain Intensity Lower Back: Pain Intensity: 5 Notes Mental Status: alert / awake / arousable and participated in evaluation Patient Amnestic to Procedure: Yes Nausea / Vomiting: adequately controlled Pain: adequately controlled Airway Patency, RR, SpO2: stable & adequate BP & HR: stable & adequate Hydration State: stable & adequate Anesthetic Complications: no major complications apparent and Pt Satisfied with anesthetic care
--- NOTE | 2019-02-15 16:29 | Hospitalist Progress Note ---
Date of Service February 15, 2019 Assessment & Plan (1) H/O Spinal surgery: Patient is a 68 yr male with H/O DM II, HTN, HLD, PTSD, history of bladder cancer and other medical problems listed below who presents with POD#1 s/p R SI joint fusion by Dr. Oconnor. S/P Right SI joint fusion by Dr. Oconnor Post op Anemia--Likely acute blood loss and dilutional due to IV fluids Pain control, wound care, activity, anticoagulation as per Orthopedics Continue bowel regimen to prevent constipation PT/OT (2) Hypertension: Stable Continue lisinopril (3) Bladder cancer: H/O Papillary urothelial neoplasm of low malignancy potential Follows with Dr. Putnam with plans for surgical resection (4) Diabetes type 2, controlled: Hold home agents Continue Insulin therapy while hospitalized Monitor (5) Hyperlipidemia: Continue statin (6) PTSD (post-traumatic stress disorder): Continue oxcarbazepine, clonazepam PRN PCP: [facility]. Novak ([facility]) Dispo: Per primary service Subjective Patient is seen and examined at bedside Complains of mild shortness at the incisional site Denies any chest pain, shortness of breath, dizziness, nausea, abdominal pain Family at bedside Offers no other complaints Review of Systems Review of Systems: All systems reviewed & are unremarkable except as noted in HPI & below Physical Exam Physical Exam: Physical Exam: Vitals signs as noted above General Appearance:Moderately built and nourished, no apparent distress Head: normocephalic, Atraumatic Eyes: normal inspection, EOMI Neck: supple, Trachea midline Respiratory/Chest: Normal breath sounds, CTA Cardiovascular: S1, S2, No murmur Abdomen/GI:Soft, Non tender, Bowel sounds present Extremities/Musculoskelatal:normal inspection, no edema, R hip surgical site in dressing Neurologic/Psych:AAOX3, grossly no focal neurological deficits Skin: normal color, warm Results & Data Vital Signs (Past 12 Hours) Vital Signs Temp Pulse Pulse Pulse Resp BP Pulse Ox 02/15/19 13:16 95 02/15/19 12:16 36.5 C 59 L 91 H 71 16 122/72 95 02/15/19 07:54 36.5 C 71 16 122/72 95 Laboratory Results Short CBC 02/15/19 Range/Units 06:09 WBC 13.33 H (4.8-10.8) K/uL Hgb 12.6 L (14.0-18.0) g/dL Hct 36.5 L (42-52) % Plt Count 207 (130-400) K/uL [facility] 02/15/19 06:09 Sodium 140 Potassium 3.8 Chloride 108 H Carbon Dioxide 27 BUN 18 Creatinine 1.05 Glucose 115 H Calcium 8.5
== END 2019-02-15 13:34 | disposition home or self-care (01) | DRG 460 ==
LOC: ASU 06:32 → 3E 09:02